=== PATIENT | male | born 1985 | race Hispanic/Latino ===

== ENCOUNTER → 2023-12-31 07:04 | Outpatient (REF) | payer OTHER, SELFPAY ==
[2023-12-31 08:46] LABS: Rubella Positive
[2023-12-31 09:19] LABS: Hepatitis B Surface Antibody Negative
[2023-12-31 11:49] LABS: Syphilis/T. pallidum Ab Reflex Negative (Negative)
[2024-01-01 11:08] LABS: Mumps Virus IgG Positive; Rubeola (Measles) IgG Positive; Varicella Zoster IgG (VZV) Positive
[2024-01-02 12:06] LABS: Quantiferon Mitogen minus NIL 9.97 IU/mL; Quantiferon NIL 0.03 IU/mL; Quantiferon Plus TB1 minus NIL 0.06 IU/mL (<=0.34); Quantiferon Plus TB2 minus NIL 0.01 IU/mL (<=0.34); Quantiferon TB Gold Plus Negative (Negative)
== END ==
LOC: REG 07:04
PROVIDERS: ATTENDING PHYSICIAN Family Medicine
DX: Z11.1 Encounter for screening for respiratory tuberculosis (principal); Z11.59 Encounter for screening for other viral diseases
CPT/HCPCS: 86480; 86706; 86735; 86762; 86765; 86780; 86787

== ENCOUNTER 2024-01-15 20:47 | Emergency (ER) | payer SELFPAY ==
[2024-01-15 20:59] VITALS: BP 122/84
[2024-01-15 21:12] VITALS: BMI 36.0
[2024-01-15 21:18] VITALS: BP 103/71
[2024-01-15 21:29] LABS: % Basophils 0.5 % (0-2); % Eosinophils 3.1 % (0-6); % Immature Granulocytes 0.2 % (0-0.5); % Lymphocytes 38.3 % (20.5-51.1); % Monocytes 7.2 % (1.7-9.3); % Neutrophils 50.7 % (42.2-75.2); Absolute Eosinophils 0.3 10^3/uL (0-0.7); Absolute Lymphocytes 3.3 10^3/uL (1.2-3.4); Absolute Monocytes 0.6 10^3/uL (0.1-0.6); Absolute Neutrophils 4.4 10^3/uL (1.4-6.5); Hematocrit 42.8 % (39.0-52.0); Hemoglobin 15.4 g/dL (13.0-18.0); Mean Corpuscular Hgb 30.8 pg (27.0-31.0); Mean Corpuscular Volume 85.6 fL (80.0-94.0); Mean Platelet Volume 9.8 fL (7.4-10.4); Nucleated Red Blood Cells % 0 % (-); Platelet Count 185 10^3/uL (130-400); Red Cell Dist. Width 12.6 % (11.5-14.5); White Blood Cell Count 8.7 10^3/uL (4.8-10.8)
[2024-01-15 21:43] LABS: ALT (SGPT) 60 U/L (0-50); AST (SGOT) 42 U/L (17-59); Albumin 4.7 g/dl (3.5-5.0); Alkaline Phosphatase 79 U/L (38-126); Blood Urea Nitrogen 14 mg/dl (9-20); Calcium 9.5 mg/dl (8.4-10.2); Carbon Dioxide 23 mmol/L (22-30); Chloride 105 mmol/L (98-107); Estimated Creatinine Clearance > 125 ml/min; Glucose 128 mg/dl (70-99); Lipase 105 U/L (23-300); Potassium 3.9 mmol/L (3.5-5.1); Sodium 138 mmol/L (135-145); Total Bilirubin 0.6 mg/dl (0.2-1.3); Total Protein 7.1 g/dl (6.3-8.2); eGFR > 60.00
--- NOTE | 2024-01-15 21:44 | ED.GENMED ---
History of Present Illness
General
Chief Complaint: Abdominal Pain
Source: patient
Exam Limitations: none
Time Seen by Provider: 01/15/24 21:12
History of Present Illness
History of Present Illness:
This is a 38 year old male that comes in with c/o abd pain. States that he went to the Clinic today and he was told to come to the ER for further evaluation. States that he was told to come earlier but he had to work. Sate that every evening he has
discomfort that goes form his naval up into his throat. States that sometimes he feels like he has food there. States that he also has pain on the right and left side, constipation and that the pain sometimes goes into his penis. States that
occasionally he has urinary burning, and nausea. States that he has a headache with occasional dizziness. Denies any fever, chills, chst pain, SOB, vomiting, diarrhea.
Past History
Past History
ED Past Medical History: GERD and Other (Prostatitis); Negative Asthma, HTN, Hypercholesterolemia or NIDDM
ED Past Surgical History: Orthopedic (Left arm surgery)
Social History
Tobacco: Non-smoker
Alcohol: None
Personal:
Living: with family
Employment: Employed ([email or web address] and [email or web address])
Review of Systems
Review of Systems
All Other Systems: ROS reviewed and negative except as documented in HPI and ROS
Constitutional: Reports no symptoms; Denies fever or chills
EENT: Reports no symptoms
Respiratory: Reports no symptoms; Denies cough or trouble breathing
Cardiac: Reports no symptoms; Denies chest pain
ABD/GI: Reports abdominal pain, nausea and constipated; Denies vomiting or diarrhea
: Reports dysuria (occasional); Denies frequency or urgency
Musculoskeletal: Reports no symptoms
Skin: Reports no symptoms
Neurological: Reports dizzy and headache
Psychiatric: Reports no symptoms
Phy Exam
General Physical Exam
General Presentation: well appearing and no apparent distress
General age: appears stated age
General Skin: warm and dry
General Habitus: normal
General Mental: alert
General Hydration: appears well hydrated
ENT Exam
ENT Exam: TM's normal, pharynx normal and neck supple
Eye Exam
Eye Exam: EOMI
Cardiovascular Exam
Cardiovascular Exam: regular rate/rhythm, no edema, no murmur and normal peripheral pulses
Pulmonary Exam
Pulmonary Exam: lungs clear, no respiratory distress, no rales, chest non tender, no crackles, no rhonchi, no wheezing and no cough
Gastrointestinal Exam
Gastrointestinal Exam: normal bowel sounds, soft, no organomegaly, no pulsatile mass, non distended and tender (Left sided tenderness and right sided tenderness with palpation)
Musculoskeletal Exam
Musculoskeletal Exam: full ROM and no edema
Skin Exam
Skin Exam: normal color, warm/dry, no rash and no petechia
Psychiatric Exam
Psychiatric Exam: normal mood/affect
Course
Orders/Labs/Results
Orders:
Orders
01/15/24 21:10
IV Insert/Care/Rem.- Treatment PRN
01/15/24 21:12
Complete Blood Count/With Diff Urgent
Comprehensive Metabolic Panel Urgent
Lipase Urgent
Urinalysis Reflex To Culture Urgent
Date Specimen was Collected: 01/15/24
Time Specimen was Collected: 21:10
01/15/24 21:43
CT Abd/pelvis W Iv Cont Urgent
Comment:
Reason For Exam: lEFT AND RIGHT SIDED PAIN
0.9% Sodium Chloride 500 ml [Nss] 500 ml IV BOLUS
Ketorolac [Toradol] 30 mg IV NOW STA
Pantoprazole [Protonix IV] 40 mg IV NOW STA
Sucralfate Suspension [Carafate Suspension] 1 gm PO NOW STA
Abnormal Lab Results
01/15/24
21:12
Glucose 128 H mg/dl
(70-99)
ALT 60 H U/L
(0-50)
01/15/24 21:12
01/15/24 21:12
CBC normal. Glucose nonfasting. ALT mildly elevated. Lipase normal at 105, Urine negative for infection .
Vital Signs
Initial and Last Documented VS:
Initial Vital Signs
Temp Pulse Resp BP Pulse Ox
98.7 F 73 20 122/84 98
01/15/24 20:59 01/15/24 20:59 01/15/24 20:59 01/15/24 20:59 01/15/24 20:59
Last Documented Vital Signs
Temp Pulse Resp BP Pulse Ox
98.7 F 73 20 122/84 98
01/15/24 20:59 01/15/24 20:59 01/15/24 20:59 01/15/24 20:59 01/15/24 20:59
MDM/Problems Addressed
Differential Diagnosis Includes:
GERD,. Diverticulitis, Renal calculus
MDM/Problems Addressed:
This is a 38 year old male that comes in with multiple complaints. States that in the evening he gets pain from his naval up into his throat. States that he ffeels like food is stuck there something. States that he also has right and left sided abd
pain. Patient was seen in the Clinic and told to come to the ER for CT scan.
Will get labs, Urine, CT scan of abd/pelvis, IV fluids and medication for pain.
Back into see patient. Explained that his blood work shows that his ALT is slightly elevated. Patient has a fatty liver. His urine is negative for infection or blood. HIs CT scan is negative for any acute process. 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 The nerves form the back wrap around to the abd and this could be the cause of his pain. Patient to use Tylenol or Ibuprofen for pain. Will also place patient on Protonix and carafate for his reflux. Patient to
follow up in the clinic and suggest that they may want to have patient do a sleep study test due to waking up trying to catch his breath. Return with any concerns.
Chronic conditions affecting care:
GERD
Acute Exacerbation and/or Progression of Chronic Illness:
GERD
*Radiology
Radiology exam reviewed: radiology read reviewed (CT-Likely contracted gallbladder, likely postprandial, food material filling the stomach. No findings to suggest biliary tract dilation. Markedly limited evaluation of intestinal tract without oral
contrast. No intestinal Obstruction, focal right lower quadrant inflammatory changes or free air. ) and other (CT-incompletely distended and incompletely opacified urinary bladder, markedly limited in evaluation. No findings to suggest obstructive
uropathy bilaterally. Mild hepatomegaly with diffuse fatty liver. )
*Pulse Oximetry
Patient hypoxic: no
*EKG
Interpreted by ED Provider?: NA
Rate: EKG- N/A
*Newscast Director Interpretation
Rate: Newscast Director- N/A
*Critical Care Note
Total Time (30-74mins, 75-104mins- exclusive of procedures): Not Applicable
ED Attending Note
-
Portions of this chart may have been created with voice recognition software.� Occasional wrong word or��sound alike� substitutions may have occurred due to the inherent limitations of voice recognition software.
Discharge Plan
Departure
Patient Disposition: Home (Routine Discharge)
Date of Disposition: 01/15/24
Time of Disposition: 23:15
Patient with high blood pressure during this ER visit?: No
Condition: Good
Covid-19: Not Applicable
Discharge Problem:
Gastritis, Abdominal pain
Instructions: Gastritis (DC), Abdominal Pain
Prescriptions:
New
pantoprazole [Protonix] 40 mg tablet,delayed release (DR/EC)
40 mg PO DAILY Qty: 30 0RF
sucralfate [Carafate] 1 gram tablet
1 g PO ACHS Qty: 40 0RF
Rx Instructions:
Dissolve 2 tsp of water and drink. 30 min-1 hour before meals and Bedtime
Referrals:
Savita Gaines CRNP [Family Provider] - Call in 1-3 days for appt
Activity Restrictions/Additional Instructions:
As discussed, your blood work shows that your ALT is elevated. This is most likely due to a fatty liver. Your Urine is negative for infection or blood. Your upper abdominal discomfort is most likely a Gastritis. You have had 2 prescription sent to
your Pharmacy and given your first dose here tonight. Your CT scan is negative for any acute process. You abdominal pain may be due to the nerves that wrap around from the back to the stomach as they get irritated with all the bending and lifting
that you are doing at work. Please follow up in the Clinic. They may also want to get a sleep study test to c/o sleep apnea. IF YOU HAVE INCREASED OR CHANGING PAIN, OR YOU HAVE ANY OTHER CONCERNS PLEASE RETURN TO THE EMERGENCY ROOM.
Interventions
Interventions:
*Risk Screen - Suicide Last Done: 01/15/24 20:59
*General Assessment Last Done: 01/15/24 20:59
*Neglect/Abuse Screening Last Done: 01/15/24 20:59
ED- Fall Risk Assessment Last Done: 01/15/24 20:59
*ED COVID-19 Vaccine History Last Done: 01/15/24 20:59
Discharge Date and Time
Print Language: GUINEAN
[2024-01-15] MEDS: TORADOL 30 MG IV (21:58)
[2024-01-15] MEDS: NSS 500 IV (21:58)
[2024-01-15] MEDS: CARAFATE SUSPENSION 1 GM PO (21:58)
[2024-01-15] MEDS: PROTONIX IV 40 MG IV (21:58)
[2024-01-15 22:18] LABS: Urine Albumin Negative (Neg - Trace); Urine Bilirubin Negative (Negative); Urine Character Clear (Clear); Urine Color Yellow; Urine Glucose Negative (Negative); Urine Ketone Negative (Negative); Urine Leukocyte Negative (Negative); Urine Nitrite Negative (Negative); Urine Occult Blood Negative (Negative); Urine Urobilinogen Negative (Neg - 1+)
--- NOTE | 2024-01-15 22:18 | EDRN ---
Patient ambulated to the bathroom and back in bed
--- NOTE | 2024-01-15 23:09 | EDRN ---
ANA Kuo in to go over results with patient and update him on plan.
== END 2024-01-15 23:34 | disposition home or self-care (01) ==
LOC: EMR 20:47
PROVIDERS: EMERGENCY PHYSICIAN Emergency Medicine; FAMILY PHYSICIAN Nurse Practitioner Acute Care
DX: R10.9 Unspecified abdominal pain (principal); R42 Dizziness and giddiness; R51.9 Headache, unspecified; R30.0 Dysuria; K59.00 Constipation, unspecified; K29.00 Acute gastritis without bleeding; K76.0 Fatty (change of) liver, not elsewhere classified; R16.0 Hepatomegaly, not elsewhere classified; K21.9 Gastro-esophageal reflux disease without esophagitis
CPT/HCPCS: 99285; 96375; 96361; 96374; 74177; 80053; 81003; 83690; 85025; Q9967

== ENCOUNTER 2024-08-06 18:55 | Emergency (ER) | payer SELFPAY ==
[2024-08-06 19:04] VITALS: BP 148/87
[2024-08-06 19:33] LABS: % Basophils 0.5 % (0-2); % Eosinophils 3.5 % (0-6); % Immature Granulocytes 0.2 % (0-0.5); % Lymphocytes 45.4 % (20.5-51.1); % Monocytes 7.3 % (1.7-9.3); % Neutrophils 43.1 % (42.2-75.2); Absolute Eosinophils 0.3 10^3/uL (0-0.7); Absolute Lymphocytes 3.7 10^3/uL (1.2-3.4); Absolute Monocytes 0.6 10^3/uL (0.1-0.6); Absolute Neutrophils 3.5 10^3/uL (1.4-6.5); Hematocrit 44.7 % (39.0-52.0); Hemoglobin 15.6 g/dL (13.0-18.0); Mean Corp Hgb Conc. 34.9 g/dL (33.0-37.0); Mean Corpuscular Hgb 30.2 pg (27.0-31.0); Mean Corpuscular Volume 86.5 fL (80.0-94.0); Mean Platelet Volume 9.7 fL (7.4-10.4); Nucleated Red Blood Cells % 0 % (-); Platelet Count 189 10^3/uL (130-400); Red Blood Cell Count 5.17 10^6/uL (4.70-6.10); Red Cell Dist. Width 12.5 % (11.5-14.5); White Blood Cell Count 8.1 10^3/uL (4.8-10.8)
[2024-08-06 19:35] LABS: Urine Albumin Negative (Neg - Trace); Urine Bilirubin Negative (Negative); Urine Character Clear (Clear); Urine Color Yellow; Urine Glucose Negative (Negative); Urine Ketone Negative (Negative); Urine Leukocyte Negative (Negative); Urine Nitrite Negative (Negative); Urine Occult Blood Negative (Negative); Urine Urobilinogen Negative (Neg - 1+)
[2024-08-06 19:53] LABS: ALT (SGPT) 84 U/L (0-50); AST (SGOT) 51 U/L (17-59); Albumin 4.5 g/dl (3.5-5.0); Alkaline Phosphatase 94 U/L (38-126); Blood Urea Nitrogen 17 mg/dl (9-20); Calcium 9.3 mg/dl (8.4-10.2); Carbon Dioxide 22 mmol/L (22-30); Chloride 107 mmol/L (98-107); Glucose 103 mg/dl (70-99); Lipase 96 U/L (23-300); Potassium 4.3 mmol/L (3.5-5.1); Sodium 139 mmol/L (135-145); Total Bilirubin 0.5 mg/dl (0.2-1.3); Total Protein 7.3 g/dl (6.3-8.2); eGFR > 60.00
== END 2024-08-06 22:53 | disposition left against medical advice (07) ==
LOC: EMR 18:55
PROVIDERS: EMERGENCY PHYSICIAN Emergency Medicine
DX: R10.10 Upper abdominal pain, unspecified (principal); Z53.21 Procedure and treatment not carried out due to patient leaving prior to being seen by health care provider
CPT/HCPCS: 80053; 81003; 83690; 85025; 93005

== ENCOUNTER 2025-02-01 14:24 | Emergency (ER) | payer SELFPAY ==
[2025-02-01 14:25] VITALS: BP 130/112
[2025-02-01 14:50] LABS: Hematocrit 43.8 % (39.0-52.0); Hemoglobin 15.5 g/dL (13.0-18.0); Mean Corp Hgb Conc. 35.4 g/dL (33.0-37.0); Mean Corpuscular Volume 85.5 fL (80.0-94.0); Nucleated Red Blood Cells % 0 % (-); Platelet Count 190 10^3/uL (130-400); Red Cell Dist. Width 12.4 % (11.5-14.5)
[2025-02-01 15:03] LABS: ALT (SGPT) 66 U/L (0-50); AST (SGOT) 36 U/L (17-59); Albumin 4.8 g/dl (3.5-5.0); Alkaline Phosphatase 89 U/L (38-126); Blood Urea Nitrogen 12 mg/dl (9-20); Calcium 9.3 mg/dl (8.4-10.2); Carbon Dioxide 23 mmol/L (22-30); Chloride 108 mmol/L (98-107); Glucose 126 mg/dl (70-99); Potassium 4.1 mmol/L (3.5-5.1); Sodium 138 mmol/L (135-145); Total Protein 7.3 g/dl (6.3-8.2); eGFR > 60.00
[2025-02-01 15:14] LABS: Troponin I 0.020 ng/ml
[2025-02-01 18:27] VITALS: BP 142/91
[2025-02-01 20:18] VITALS: BP 123/74
[2025-02-01 20:51] LABS: Troponin I 0.023 ng/ml
[2025-02-01 21:00] VITALS: BP 136/89
--- NOTE | 2025-02-01 21:20 | ED.GENMED ---
History of Present Illness
General
Chief Complaint: Dizziness
Time Seen by Provider: 02/01/25 18:09
History of Present Illness
History of Present Illness:
39-year-old male with no previous past medical history presents to the emergency department for evaluation of a myriad of complaints that have occurred intermittently for the past 4 to 5 days. He states he has had headaches, chest pressure,
lightheadedness, palpitations, and shortness of breath as well as left subconjunctival hemorrhage. He had a syncopal event over the weekend and came to the emergency department but the wait time was too long thus he went home without evaluation.
He states today he had similar recurrence of symptoms which come on rapidly. No diaphoresis or vomiting associated with this. Denies any illicit substance use.
Past History
Past History
ED Past Medical History: GERD and Other (Prostatitis); Negative Asthma, HTN, Hypercholesterolemia or NIDDM
ED Past Surgical History: Orthopedic (Left arm surgery)
Social History
Tobacco: Non-smoker
Alcohol: None
Personal:
Living: with family
Employment: Employed ([employer] and [employer])
Review of Systems
Review of Systems
Allergies reviewed?: Yes
All Other Systems: ROS reviewed and negative except as documented in HPI and ROS
Phy Exam
Physical Exam
Physical Exam:
GEN: Well appearing, NAD, WDWN
HEENT: Oral mucosa moist, no scleral icterus
Cardiac: Regular rate and rhythm, no murmur
Lung: No respiratory distress, no tachypnea, lungs clear to auscultation bilaterally
MSK: No gross deformity or injuries
Skin: Good color, no pallor or jaundice, no rashes
Neuro: AO x3, moves all extremities freely, cranial nerves II through XII grossly intact
Psych: Calm, cooperative
Course
Orders/Labs/Results
Orders:
Orders
02/01/25 14:29
Electrocardiogram (*1) Urgent
Reason for Study: Chest Pain
02/01/25 14:30
CT Head W/o Iv Contrast Urgent
Comment:
Reason For Exam: dizziness, headache
EKG- Treatment ONCE
02/01/25 14:33
CMP [Comprehensive Metabolic Panel] Urgent
Complete Blood Count/With Diff Urgent
Troponin I Urgent
02/01/25 18:52
Electrocardiogram (*1) Urgent
Reason for Study: Palpitations
EKG- Treatment ONCE
02/01/25 18:53
CR Chest - 2 Views Urgent
Comment:
Reason For Exam: chest pain/SOB
02/01/25 20:15
Troponin I Urgent
Abnormal Lab Results
02/01/25
14:33
Chloride 108 H mmol/L
(98-107)
Glucose 126 H mg/dl
(70-99)
ALT 66 H U/L
(0-50)
02/01/25 14:33
02/01/25 14:33
Vital Signs
Initial and Last Documented VS:
Initial Vital Signs
Temp Pulse Resp BP Pulse Ox
98.4 F 84 16 130/112 97
02/01/25 14:25 02/01/25 14:25 02/01/25 14:25 02/01/25 14:25 02/01/25 14:25
Last Documented Vital Signs
Temp Pulse Resp BP Pulse Ox
98.4 F 90 26 136/89 97
02/01/25 14:25 02/01/25 19:00 02/01/25 19:00 02/01/25 21:00 02/01/25 21:21
MDM/Problems Addressed
MDM/Problems Addressed:
Patient's litany of symptoms do not have a clear etiology but most notably I am concerned for cardiac dysrhythmia given the syncopal event reported palpitations and shortness of breath. Troponin remained flat on initial compared to delta obtaining
follow-up for this patient will be somewhat complicated given that he has no health insurance but he will need cardiology follow-up through the [facility]. Certainly would benefit from cardiology evaluation for Holter monitor
Comment
Comment:
Initial EKG independently interpreted by me shows normal sinus rhythm rate [address] changes concerning for ischemia, repeat EKG also independently interpreted by me shows normal sinus rhythm with no changes compared to prior
Chest x-ray independently interpreted by me is negative for acute disease
*Pulse Oximetry
SaO2: 97
Oxygen Mode of Delivery: Room air
Patient hypoxic: no
*Critical Care Note
Total Time (30-74mins, 75-104mins- exclusive of procedures): Not Applicable
ED Attending Note
-
Portions of this chart may have been created with voice recognition software.� Occasional wrong word or��sound alike� substitutions may have occurred due to the inherent limitations of voice recognition software.
Discharge Plan
Departure
Patient Disposition: Home (Routine Discharge)
Date of Disposition: 02/01/25
Time of Disposition: 21:20
Patient with high blood pressure during this ER visit?: No
Discharge Problem:
Palpitations, Syncope, Headache
Instructions: Chest Pain CBC Follow Up
Prescriptions:
No Action
pantoprazole [Protonix] 40 mg tablet,delayed release (DR/EC)
40 mg PO DAILY Qty: 30 0RF
sucralfate [Carafate] 1 gram tablet
1 g PO ACHS Qty: 40 0RF
Rx Instructions:
Dissolve 2 tsp of water and drink. 30 min-1 hour before meals and Bedtime
Referrals:
Leonel Grace MD [Active, Cardiology]
Activity Restrictions/Additional Instructions:
Contact the and [facility] to assist with facilitating your follow-up with the heart doctors
Interventions
Interventions:
*Risk Screen - Suicide Last Done: 02/01/25 21:52
*General Assessment Last Done: 02/01/25 18:29
*Neglect/Abuse Screening Last Done: 02/01/25 21:52
*ED- Fall Risk Assessment Last Done: 02/01/25 18:29
*ED COVID-19 Vaccine History Last Done: 02/01/25 18:29
*Nursing Disposition Last Done: 02/01/25 21:52
ED- Neurological Assessment Last Done: 02/01/25 18:29
ED- Cardiac Assessment Last Done: 02/01/25 18:29
Discharge Date and Time
Discharge Date/Time: 02/01/25 21:52
Print Language: FRISIAN
--- NOTE | 2025-02-01 21:20 | EDRN ---
MARIA E Herrmann in to go over results and plan with patient.
== END 2025-02-01 21:52 | disposition home or self-care (01) ==
LOC: EMR 14:24
PROVIDERS: Emergency Medicine; Physician Assistant; EMERGENCY PHYSICIAN Emergency Medicine
DX: R20.2 Paresthesia of skin (principal); R55 Syncope and collapse; R51.9 Headache, unspecified; K21.9 Gastro-esophageal reflux disease without esophagitis; Z59.71 Insufficient health insurance coverage
CPT/HCPCS: 99284; 70450; 71046; 80053; 84484; 85025; 93005

== ENCOUNTER → 2025-03-09 08:27 | Outpatient (REF) | payer OTHER, SELFPAY ==
[2025-03-09 11:08] LABS: ALT (SGPT) 60 U/L (0-50); AST (SGOT) 31 U/L (17-59); HDL Cholesterol 42 mg/dl; LDL Cholesterol, Calculated 112 mg/dl; Very Low Density Lipoprotein 41 mg/dl (0-30)
[2025-03-09 11:42] LABS: Glycohemoglobin (HgbA1c) 5.8 % (4.0-5.6)
== END ==
LOC: RCS 08:27
PROVIDERS: ATTENDING PHYSICIAN Internal Medicine Cardiovascular Disease; FAMILY PHYSICIAN Nurse Practitioner Adult Health
DX: R07.89 Other chest pain (principal); R06.02 Shortness of breath; R89.9 Unspecified abnormal finding in specimens from other organs, systems and tissues; R79.89 Other specified abnormal findings of blood chemistry; R73.01 Impaired fasting glucose; R03.0 Elevated blood-pressure reading, without diagnosis of hypertension
CPT/HCPCS: 36415; 80061; 83036; 84450; 84460; 93017; 93350

== ENCOUNTER → 2025-03-16 14:57 | Outpatient (REF) | payer OTHER, SELFPAY | LOC: RCS 14:57 | PROVIDERS: ATTENDING PHYSICIAN Internal Medicine Cardiovascular Disease; FAMILY PHYSICIAN Nurse Practitioner Adult Health | DX: R07.89 Other chest pain (principal); R06.02 Shortness of breath; R89.9 Unspecified abnormal finding in specimens from other organs, systems and tissues; R79.89 Other specified abnormal findings of blood chemistry; R73.01 Impaired fasting glucose; R03.0 Elevated blood-pressure reading, without diagnosis of hypertension | CPT/HCPCS: 93306 ==